=== PATIENT | male | born 1945 | race Caucasian/White ===

== ENCOUNTER 2018-05-24 15:18 | Emergency (ER) | payer MEDICARE, OTHER ==
--- NOTE | 2018-05-24 17:32 | ED Physician Documentation ---
PD HPI HEAD INJURY - Stated complaint Stated Complaint: GLF/ HEAD INJ - Chief complaint Chief Complaint: Trauma Ext - History obtained from History obtained from: Patient - History of Present Illness Mechanism of head injury: Fell (while walking, tripped over object) Timing - onset: Yesterday (landed to right side, with large bruise right shoulder and persistent pain right radial side wrist.) Location of injury: Right (small abrasion to right foreahead but no concussive symptoms.) Associated symptoms: No: LOC, AMS, Paresthesias Contributing factors: No: Anticoagulated, Intoxicated Similar symptoms before: Has not had sx before Recently seen: Not recently seen Review of Systems Constitutional: denies: Fever Nose: denies: Rhinorrhea / runny nose, Congestion Throat: denies: Sore throat Cardiac: denies: Chest pain / pressure, Palpitations Respiratory: denies: Dyspnea, Cough GI: denies: Abdominal Pain, Nausea, Vomiting, Diarrhea Skin: reports: Abrasion (s) (forehead and has bruising right upper arm.). denies: Rash, Lesions Musculoskeletal: reports: Extremity pain. denies: Neck pain, Back pain Neurologic: denies: Generalized weakness, Focal weakness, Numbness, Near syncope PD PAST MEDICAL HISTORY - Past Medical History Cardiovascular: None Respiratory: None Neuro: None - Allergies Allergies/Adverse Reactions: Allergies Allergy/AdvReac Type Severity Reaction Status Date / Time No Known Drug Allergies Allergy Verified 05/24/18 15:32 PD ED PE NORMAL - Vitals Vital signs reviewed: Yes - General General: Alert and oriented X 3, No acute distress, Well developed/nourished - HEENT HEENT: PERRL, EOMI, Ears normal, Pharynx benign, Other (forehead with mild abrasion. Chest and shoulder without tenderness.) - Neck Neck: Supple, no meningeal sign, No bony TTP - Cardiac Cardiac: RRR, No murmur - Respiratory Respiratory: No respiratory distress, Clear bilaterally - Abdomen Abdomen: Soft, Non tender - Male Male : Deferred - Rectal Rectal: Deferred - Back Back: No CVA TTP, No spinal TTP - Derm Derm: Normal color, Warm and dry - Neuro Neuro: Alert and oriented X 3, No motor deficit, Normal speech Eye Opening: Spontaneous Motor: Obeys Commands Verbal: Oriented GCS Score: 15 Results - Vitals Vitals: Oxygen O2 Source Room air - Rads (name of study) wrist Radiology: Prelim report reviewed (no bony abnormal), EMP read contemporaneously (I see a line at radial styloid on 2 views that looks c/w styloid nondisplaced fracture to me. ) PD MEDICAL DECISION MAKING - ED course Complexity details: reviewed results, considered differential, d/w patient - Sepsis Event Vital Signs: Oxygen O2 Source Room air Departure - Departure Disposition: 01 Home, Self Care Clinical Impression: Multiple bruises Radial styloid fracture Qualifiers: Encounter type: initial encounter Fracture type: closed Fracture alignment: nondisplaced Laterality: right Qualified Code(s): S52.514A - Nondisplaced fracture of right radial styloid process, initial encounter for closed fracture Fall from slip, trip, or stumble Qualifiers: Encounter type: initial encounter Qualified Code(s): W01.0XXA - Fall on same level from slipping, tripping and stumbling without subsequent striking against object, initial encounter Condition: Stable Record reviewed to determine appropriate education?: Yes Instructions: ED Contusion Soft Tissue, ED Fx Wrist General Comments: Tylenol or ibuprofen if needed for pains. Use a wrist splint most of the time. He can remove it for gentle range of motion and cleaning and such. However have it on most all of the time otherwise to protect the fracture area. Follow- up with your primary care in about 1-1/2 weeks, call for an appointment. They may re-x-ray it at that point to make sure it still in its position. You will want to have the wrist splinted for about 4 weeks for healing time. The bruises should slowly fade away over time and I do not suspect any bigger muscle injuries or such on the arms and legs. Discharge Date/Time: 05/24/18 20:09
--- NOTE | 2018-05-24 19:42 | XRAY Report ---
Procedure Date: 05/24/2018 Accession Number: [id number] / [id number] Procedure: XR - Wrist 4 View RT CPT Code: FULL RESULT: EXAM: RIGHT WRIST RADIOGRAPHY EXAM DATE: 05/24/2018 06:57 PM. CLINICAL HISTORY: Fall. Pain and swelling radial aspect right wrist. COMPARISON: None. TECHNIQUE: 4 views. FINDINGS: Bones: Normal. No fractures or bone lesions. Joints: Normal. No subluxations. Soft Tissues: 2 x 6 mm linear high density either on the skin or in the superficial aspect soft tissues medial aspect base of fourth finger. IMPRESSION: 1. No acute bony abnormality. 2. A 2 x 5 mm linear hyperdensity medial aspect base fourth finger level with the mid diaphysis fourth proximal phalanx. This could represent skin contaminate or artifact versus retained foreign body. Correlate clinically to determine significance, if any. [facility]
[2018-05-24 20:09] VITALS: BP 144/72
== END 2018-05-24 20:09 | disposition home or self-care (01) ==
LOC: ED 15:18
DX: S52.514A Nondisplaced fracture of right radial styloid process, initial encounter for closed fracture (principal); S40.021A Contusion of right upper arm, initial encounter; S60.211A Contusion of right wrist, initial encounter; S80.01XA Contusion of right knee, initial encounter; W01.10XA Fall on same level from slipping, tripping and stumbling with subsequent striking against unspecified object, initial encounter; Y93.01 Activity, walking, marching and hiking
CPT/HCPCS: 99283